=== PATIENT | female | born 1955 | race Caucasian/White ===

== ENCOUNTER → 2023-11-09 10:04 | Outpatient (REF) | payer MEDICARE, SELFPAY | LOC: HWRAD 10:04 | PROVIDERS: ATTENDING PHYSICIAN Physician Assistant Medical | DX: E78.2 Mixed hyperlipidemia (principal); E04.1 Nontoxic single thyroid nodule | CPT/HCPCS: 76536 ==

== ENCOUNTER → 2024-02-07 15:02 | Outpatient (REF) | payer MEDICARE, SELFPAY | LOC: WDC 15:02 | PROVIDERS: ATTENDING PHYSICIAN Physician Assistant Medical | DX: Z85.3 Personal history of malignant neoplasm of breast (principal); Z12.31 Encounter for screening mammogram for malignant neoplasm of breast; S62.101S Fracture of unspecified carpal bone, right wrist, sequela; M85.89 Other specified disorders of bone density and structure, multiple sites; S42.401S Unspecified fracture of lower end of right humerus, sequela; E04.2 Nontoxic multinodular goiter; E78.2 Mixed hyperlipidemia; R73.02 Impaired glucose tolerance (oral); K44.9 Diaphragmatic hernia without obstruction or gangrene; Z00.00 Encounter for general adult medical examination without abnormal findings | CPT/HCPCS: 77063; 77067 ==

== ENCOUNTER → 2024-09-10 07:57 | Outpatient (REF) | payer MEDICARE, SELFPAY | LOC: RCS 07:57 | PROVIDERS: ATTENDING PHYSICIAN Internal Medicine Cardiovascular Disease; FAMILY PHYSICIAN Physician Assistant Medical | DX: I25.118 Atherosclerotic heart disease of native coronary artery with other forms of angina pectoris (principal) | CPT/HCPCS: 93306 ==

== ENCOUNTER → 2024-11-24 11:28 | Outpatient (REF) | payer MEDICARE, SELFPAY | LOC: HWRAD 11:28 | PROVIDERS: ATTENDING PHYSICIAN Internal Medicine Endocrinology, Diabetes & Metabolism; FAMILY PHYSICIAN Physician Assistant Medical | DX: E04.2 Nontoxic multinodular goiter (principal) | CPT/HCPCS: 76536 ==

== ENCOUNTER → 2025-02-16 09:14 | Outpatient (REF) | payer MEDICARE, SELFPAY | LOC: HWWDC 09:14 | PROVIDERS: ATTENDING PHYSICIAN Obstetrics & Gynecology; FAMILY PHYSICIAN Physician Assistant Medical | DX: Z12.31 Encounter for screening mammogram for malignant neoplasm of breast (principal) | CPT/HCPCS: 77063; 77067 ==